=== PATIENT | male | born 1950 | race Hispanic/Latino ===

== ENCOUNTER → 2023-09-13 | Outpatient (REF) | payer MEDICARE ==
[~2023-09-13] MED LIST: AMLODIPINE BESYL5 MG PO; ASPIRIN81 MG PO; ATORVASTATIN CA20 MG PO; CLOPIDOGREL75 MG PO; DICYCLOMINE HCL10 MG PO; NITROGLYCERIN0.4 MG SL; ZETIA10 MG PO
== END ==
LOC: US 08:51
PROVIDERS: ATTEND Nurse Practitioner
DX: R10.11 Right upper quadrant pain (principal)
CPT/HCPCS: 76705; 78227; A9537